=== PATIENT | female | born 1955 | race Caucasian/White ===

== ENCOUNTER 2019-04-06 12:43 | Inpatient (IN) | payer OTHER ==
[2019-04-06 13:08] LABS: ADD MAN DIFF? NO
[2019-04-06 13:12] LABS: WHITE BLOOD COUNT 11.6 10^3/ul (4.8-10.8)
[2019-04-06 13:12] LABS: BASOPHILS % 0.3 % (0.0-2.0); EOSINOPHILS # 0.1 10^3/ul (0.0-0.5); EOSINOPHILS % 1.1 % (0.0-7.0); HEMATOCRIT 43.9 % (37.0-47.0); HEMOGLOBIN 14.7 g/dl (12.0-16.0); LYMPHOCYTES # 1.4 10^3/ul (0.8-2.9); LYMPHOCYTES % 12.2 % (15.0-51.0); MEAN CORPUSCULAR HEMOGLOBIN 28.4 pg (29.0-33.0); MEAN CORPUSCULAR HGB CONC 33.5 g/dl (32.0-37.0); MEAN CORPUSCULAR VOLUME 84.9 fl (82.0-101.0); MEAN PLATELET VOLUME 11.3 fl (7.4-10.4); MONOCYTE # 0.8 10^3/ul (0.3-0.9); MONOCYTES % 6.6 % (0.0-11.0); NEUTROPHIL # 9.2 10^3/ul (1.6-7.5); NEUTROPHILS % 79.4 % (39.0-77.0); PLATELET COUNT 216 10^3/UL (140-415); RED BLOOD COUNT 5.17 10^6/ul (4.20-5.40); RED CELL DISTRIBUTION WIDTH 12.7 % (11.5-14.5)
[2019-04-06] MEDS: SOD CHLORIDE 0.9% 1,000 ML IV ×3 (13:24→23:16)
[2019-04-06] MEDS: KETOROLAC 15 MG INJ IV (13:25)
[2019-04-06] MEDS: ONDANSETRON 4 MG INJ IV (13:25)
[2019-04-06 13:28] LABS: ALANINE AMINOTRANSFERASE 238 IU/L (13-69); ALBUMIN 3.2 g/dl (3.3-4.9); ALBUMIN/GLOBULIN RATIO 1.03; ALKALINE PHOSPHATASE 111 IU/L (42-121); ANION GAP 5 (5-13); ASPARTATE AMINO TRANSFERASE 350 IU/L (15-46); BILIRUBIN,INDIRECT 1.4 mg/dl (0-1.1); BILIRUBIN,TOTAL 1.4 mg/dl (0.2-1.3); BLOOD UREA NITROGEN 11 mg/dl (7-20); CALCIUM 7.4 mg/dl (8.4-10.2); CARBON DIOXIDE 24 mmol/L (21-31); CHLORIDE 113 mmol/L (97-110); CREATININE 0.48 mg/dl (0.44-1.00); Estimated GFR > 60 mL/min (>60); GLUCOSE 103 mg/dl (70-220); POTASSIUM 3.2 mmol/L (3.5-5.1); SODIUM 142 mmol/L (135-144); TOTAL PROTEIN 6.3 g/dl (6.1-8.1)
[2019-04-06 13:39] LABS: ADD UMIC NO; UR ASCORBIC ACID NEGATIVE (NEGATIVE); UR BILIRUBIN (Dip) NEGATIVE (NEGATIVE); UR BLOOD (Dip) NEGATIVE (NEGATIVE); UR CLARITY CLEAR (CLEAR); UR COLOR YELLOW (YELLOW); UR GLUCOSE (Dip) NEGATIVE (NEGATIVE); UR KETONES (Dip) NEGATIVE (NEGATIVE); UR LEUKOCYTE ESTERASE (Dip) NEGATIVE Leu/ul (NEGATIVE); UR NITRITE (Dip) NEGATIVE (NEGATIVE); UR SPECIFIC GRAVITY (Dip) 1.008 (1.003-1.030); UR TOTAL PROTEIN (Dip) NEGATIVE (NEGATIVE); UR UROBILINOGEN (Dip) NEGATIVE (NEGATIVE)
[2019-04-06 14:03] LABS: LIPASE 10635 U/L (23-300)
[2019-04-06 14:18] LABS: CREATINE KINASE 85 IU/L (23-200)
[2019-04-06 14:30] LABS: TROPONIN-I < 0.012 ng/ml (0.000-0.120)
[2019-04-06] MEDS ORDERED: ACETAMINOPHEN 325 MG TAB PO ×2 (15:30)
[2019-04-06] MEDS ORDERED: NACL 0.9% 3 ML SYG IV (15:30)
[2019-04-06] MEDS ORDERED: ONDANSETRON 4 MG INJ IV ×2 (15:30)
[2019-04-06] MEDS ORDERED: HYDROCODONE/APAP (5/325) TAB PO (15:30)
[2019-04-06 15:48] LABS: CHOL/HDL RATIO 2.9 RATIO; HDL CHOLESTEROL 59 mg/dl (35-98); LDL CHOLESTEROL,CALCULATED 103 mg/dl; TRIGLYCERIDES 72 mg/dl (0-149)
[2019-04-06 15:48] LABS: CHOLESTEROL 176 mg/dl (100-200)
[2019-04-06] MEDS: KETOROLAC 15 MG INJ IM (17:30)
[2019-04-06] MEDS: POTASSIUM CHLORIDE 100 ML IVPB ×2 (17:40→21:52)
[2019-04-06] MEDS: PIPER-TAZO 3.375 GM IV (PMX) 100 ML IVPB ×2 (18:30→23:38)
[2019-04-06] MEDS: morphine 2 MG INJ IV (21:48)
[2019-04-07 05:30] LABS: HEMOGLOBIN A1C 5.3 % (0-5.9)
[2019-04-07] MEDS: PIPER-TAZO 3.375 GM IV (PMX) 100 ML IVPB ×2 (05:30→13:04)
[2019-04-07] MEDS: PANTOPRAZOLE 40 MG INJ IV (05:30)
[2019-04-07 05:56] LABS: LIPASE 1513 U/L (23-300)
[2019-04-07 05:57] LABS: ALANINE AMINOTRANSFERASE 342 IU/L (13-69); ALBUMIN 3.3 g/dl (3.3-4.9); ALKALINE PHOSPHATASE 119 IU/L (42-121); ANION GAP 4 (5-13); ASPARTATE AMINO TRANSFERASE 275 IU/L (15-46); BILIRUBIN,INDIRECT 1.9 mg/dl (0-1.1); BILIRUBIN,TOTAL 1.9 mg/dl (0.2-1.3); BLOOD UREA NITROGEN 12 mg/dl (7-20); CALCIUM 8.2 mg/dl (8.4-10.2); CARBON DIOXIDE 25 mmol/L (21-31); CHLORIDE 114 mmol/L (97-110); CREATININE 0.64 mg/dl (0.44-1.00); Estimated GFR > 60 mL/min (>60); GLUCOSE 92 mg/dl (70-220); MAGNESIUM 2.1 mg/dl (1.7-2.5); SODIUM 143 mmol/L (135-144); TOTAL PROTEIN 6.3 g/dl (6.1-8.1)
[2019-04-07] MEDS: SOD CHLORIDE 0.9% 1,000 ML IV ×3 (06:51→23:16)
[2019-04-07 07:35] LABS: ADD MAN DIFF? NO
[2019-04-07] MEDS: morphine 2 MG INJ IV (08:31)
[2019-04-07 10:53] LABS: WHITE BLOOD COUNT 7.3 10^3/ul (4.8-10.8)
[2019-04-07 10:53] LABS: BASOPHILS % 0.4 % (0.0-2.0); EOSINOPHILS # 0.2 10^3/ul (0.0-0.5); EOSINOPHILS % 2.2 % (0.0-7.0); HEMATOCRIT 40.2 % (37.0-47.0); LYMPHOCYTES # 1.4 10^3/ul (0.8-2.9); LYMPHOCYTES % 19.6 % (15.0-51.0); MEAN CORPUSCULAR HEMOGLOBIN 28.3 pg (29.0-33.0); MEAN CORPUSCULAR HGB CONC 32.3 g/dl (32.0-37.0); MEAN CORPUSCULAR VOLUME 87.4 fl (82.0-101.0); MEAN PLATELET VOLUME 12.2 fl (7.4-10.4); MONOCYTE # 0.5 10^3/ul (0.3-0.9); NEUTROPHIL # 5.1 10^3/ul (1.6-7.5); NEUTROPHILS % 70.5 % (39.0-77.0); PLATELET COUNT 193 10^3/UL (140-415); RED CELL DISTRIBUTION WIDTH 13.1 % (11.5-14.5)
[2019-04-07 15:26] LABS: INR 1.06; PROTIME 13.9 Sec (11.9-14.9); PT RATIO 1.1
[2019-04-07 15:35] LABS: HAAIG REFLEX REFLEX FILED
[2019-04-07 16:10] LABS: HEPATITIS B SURFACE ANTIGEN NEGATIVE (NEGATIVE)
[2019-04-07 16:19] LABS: HEPATITIS B SURFACE ANTIGEN NEGATIVE (NEGATIVE)
[2019-04-07 16:28] LABS: HEPATITIS B CORE ANTIBODY NEGATIVE (NEGATIVE); HEPATITIS C VIRAL ANTIBODY NEGATIVE (NEGATIVE)
[2019-04-07 16:37] LABS: HEPATITIS B CORE ANTIBODY NEGATIVE (NEGATIVE); HEPATITIS C VIRAL ANTIBODY NEGATIVE (NEGATIVE)
[2019-04-07] MEDS: oxyCODONE 5 MG TAB PO (23:45)
[2019-04-08] MEDS: PANTOPRAZOLE 40 MG INJ IV (05:58)
[2019-04-08] MEDS: SOD CHLORIDE 0.9% 1,000 ML IV (06:26)
[2019-04-08 06:54] LABS: ALPHA FETOPROTEIN 1.87 IU/L (0.00-7.21)
[2019-04-08 10:15] LABS: ADD MAN DIFF? NO
[2019-04-08 10:20] LABS: BASOPHILS % 0.4 % (0.0-2.0); EOSINOPHILS # 0.3 10^3/ul (0.0-0.5); EOSINOPHILS % 3.9 % (0.0-7.0); HEMOGLOBIN 12.2 g/dl (12.0-16.0); LYMPHOCYTES # 2.4 10^3/ul (0.8-2.9); LYMPHOCYTES % 29.5 % (15.0-51.0); MEAN CORPUSCULAR HEMOGLOBIN 28.2 pg (29.0-33.0); MEAN CORPUSCULAR HGB CONC 32.1 g/dl (32.0-37.0); MEAN CORPUSCULAR VOLUME 87.8 fl (82.0-101.0); MEAN PLATELET VOLUME 11.7 fl (7.4-10.4); MONOCYTE # 0.7 10^3/ul (0.3-0.9); MONOCYTES % 8.7 % (0.0-11.0); NEUTROPHIL # 4.6 10^3/ul (1.6-7.5); NEUTROPHILS % 57.1 % (39.0-77.0); PLATELET COUNT 180 10^3/UL (140-415); RED BLOOD COUNT 4.33 10^6/ul (4.20-5.40); RED CELL DISTRIBUTION WIDTH 12.7 % (11.5-14.5)
[2019-04-08 10:25] LABS: ALANINE AMINOTRANSFERASE 205 IU/L (13-69); ALBUMIN 3.2 g/dl (3.3-4.9); ALBUMIN/GLOBULIN RATIO 1.23; ALKALINE PHOSPHATASE 104 IU/L (42-121); ANION GAP 4 (5-13); ASPARTATE AMINO TRANSFERASE 102 IU/L (15-46); BLOOD UREA NITROGEN 12 mg/dl (7-20); CALCIUM 8.6 mg/dl (8.4-10.2); CARBON DIOXIDE 26 mmol/L (21-31); CHLORIDE 107 mmol/L (97-110); Estimated GFR > 60 mL/min (>60); GLUCOSE 97 mg/dl (70-220); POTASSIUM 3.9 mmol/L (3.5-5.1); SODIUM 137 mmol/L (135-144); TOTAL PROTEIN 5.8 g/dl (6.1-8.1)
== END 2019-04-08 16:55 | disposition home or self-care (01) | DRG 440 ==
LOC: E/R 12:43 → MS1 15:11
DX: K85.90 Acute pancreatitis without necrosis or infection, unspecified (principal); M62.830 Muscle spasm of back; K80.20 Calculus of gallbladder without cholecystitis without obstruction; E83.51 Hypocalcemia; K76.89 Other specified diseases of liver; E87.8 Other disorders of electrolyte and fluid balance, not elsewhere classified
CPT/HCPCS: 36415; 71045; 74181; 74182; 76705; 78226; 80053; 80061; 81003; 82105; 82550; 83036; 83690; 83735; 84443; 84484; 85025; 85610; 86704; 86708; 86709; 86803; 87340; 93005; 96374; 99285-25